=== PATIENT | female | born 1985 | race Caucasian/White ===

== ENCOUNTER 2021-09-10 18:38 | Emergency (ER) | payer MEDICAID ==
[~2021-09-10] VITALS: Ht 149.9 cm; Wt 90.3 kg
[2021-09-10 19:13] VITALS: BP 153/93
[2021-09-10 19:52] LABS: BASOPHILS % (AUTO) 0.5 % (0.0-2.0); EOSINOPHILS # (AUTO) 0.2 K/uL (0-0.4); EOSINOPHILS % (AUTO) 2.5 % (0.0-4.0); HEMATOCRIT 41.2 % (36-48); HEMOGLOBIN 13.9 g/dL (12.0-16.0); LYMPHOCYTES # (AUTO) 1.9 K/uL (2.5-16.5); LYMPHOCYTES % (AUTO) 24.2 % (20.5-51.1); MEAN CORPUSCULAR HEMOGLOBIN 31 pg (27-31); MEAN CORPUSCULAR HGB CONC 34 g/dL (33-37); MEAN CORPUSCULAR VOLUME 92.1 fL (80-94); MONOCYTES # (AUTO) 0.4 K/uL (0.8-1.0); MONOCYTES % (AUTO) 5.4 % (1.7-9.3); NEUTROPHILS # (AUTO) 5.4 K/uL (1.8-7.7); NEUTROPHILS % (AUTO) 67.4 % (42.2-75.2); PLATELET COUNT (AUTO) 288 K/uL (140-450); RED BLOOD CELL COUNT(AUTO) 4.47 MIL/uL (4.20-5.40); RED CELL DISTRIBUTION WIDTH 13.1 % (11.6-13.7)
[2021-09-10 19:56] LABS: APPEARANCE,URINE SL CLOUDY (CLEAR); BILIRUBIN,URINE 1+ (NEGATIVE); BLOOD, URINE 3+ (NEGATIVE); COLOR,URINE BROWN (YELLOW); LEUKOCYTE ESTERASE ,URINE NEGATIVE (NEGATIVE); NITRITE, URINE NEGATIVE (NEGATIVE); PH,URINE 5.5 (5.0-9.0); UGLUCOSE NEGATIVE (NEGATIVE)
[2021-09-10 20:11] LABS: RBC,URINE 11-20 (MOD) /HPF (0-5)
--- NOTE | 2021-09-10 21:00 | NUR ---
PT TAKEN TO CHAIR C BY DR. RUIZ
--- NOTE | 2021-09-10 22:14 | NUR ---
PT CLEARED FOR DISCHARGE BY DR. RUIZ. PT PROVIDED WITH LAB AND US RESULTS. ALL QUESTIONS ASKED AND ANSWERED PRIOR TO DISCHARGE.
== END 2021-09-10 22:14 | disposition home or self-care (01) ==
LOC: MED 18:38
DX: O20.0 Threatened abortion (principal); Z3A.11 11 weeks gestation of pregnancy
CPT/HCPCS: 36415; 76817; 81001; 84702; 85025; 86900; 86901; 87086; 99284; Q0092